=== PATIENT | female | born 1945 | race Caucasian/White ===

== ENCOUNTER 2019-03-12 22:37 | Emergency (ER) | payer OTHER, MEDICAID ==
[~2019-03-12] VITALS: Ht 154.9 cm; Wt 75.8 kg
[~2019-03-12 22:37] MED LIST: FOSAMAX 70 MG T70 M1; INDERAL60 MG PO; LISINOPRIL-HCT1 EAC1; MELOXICAM7.5 MG; NORCO 5-325 TA1 EACH PO; OMEPRAZOLE20 M2; PREMARIN0.3 MG
[2019-03-12] MEDS ORDERED: ZESTRIL40 MG PO (23:05)
[2019-03-12] MEDS ORDERED: HYDROCHLOROTHIA25 M2 PO (23:06)
[2019-03-12] MEDS ORDERED: MULTI VITAMIN1 EACH PO (23:06)
[2019-03-12] MEDS ORDERED: ADULT ASPIRIN R81 MG PO (23:09)
[2019-03-12] MEDS ORDERED: PRAVACHOL40 MG PO (23:09)
[2019-03-12] MEDS ORDERED: CLARITIN10 MG PO (23:09)
[2019-03-12] MEDS ORDERED: FLONASE 0.05%50 MCG NASAL (23:10)
[2019-03-12] MEDS ORDERED: LIPITOR10 MG PO (23:11)
[2019-03-12] MEDS ORDERED: CYCLOBENZAPRINE5 MG PO (23:12)
[2019-03-12] MEDS ORDERED: IBUPROFEN 800800 M1 PO (23:13)
[2019-03-12] MEDS ORDERED: NEXIUM40 MG PO (23:14)
[2019-03-13 00:05] LABS: INFLUENZA A ANTIGEN None Detected (None Detect); INFLUENZA B ANTIGEN None Detected (None Detect)
[2019-03-13] MEDS ORDERED: PROAIR HFA8.5 GM INH (00:13)
[2019-03-13] MEDS ORDERED: PROMETH-CODEIN 65 ML PO (00:13)
[2019-03-13 00:24] VITALS: BP 131/84
== END 2019-03-13 00:27 | disposition home or self-care (01) ==
LOC: M.ERS 22:37
PROVIDERS: Emergency Medicine
DX: J06.9 Acute upper respiratory infection, unspecified (principal); I10 Essential (primary) hypertension; K21.9 Gastro-esophageal reflux disease without esophagitis; Z90.710 Acquired absence of both cervix and uterus